=== PATIENT | female | born 1940 | race Caucasian/White ===

== ENCOUNTER → 2017-03-26 | Outpatient (CLI) | payer MEDICARE, OTHER ==
[~2017-03-26] MED LIST: ADVICOR; CALCIUM 6001 TAB PO; EPA FISH OIL1000 MG PO; FOSAMAX70 MG PO; LIPITOR 10MG10 MG PO; VITAMIN B150 MG PO; VITAMIN B610 MG PO; VITAMIN D 400400 IU PO
== END ==
LOC: MC.RAD 12:55
DX: Z12.31 Encounter for screening mammogram for malignant neoplasm of breast (principal)

== ENCOUNTER 2018-02-02 16:26 | Emergency (ER) | payer MEDICARE, OTHER ==
[~2018-02-02] VITALS: Ht 152.4 cm; Wt 60.5 kg
[2018-02-02 16:31] VITALS: TEMP 98.7
[2018-02-02 17:05] LABS: COLLECTION METHOD CLEAN CATCH
[2018-02-02 17:10] LABS: BASO # 0.1 (0.0-0.2); BASO % 0.6 % (0.0-2.0); EOS # 0.1 (0.0-0.7); EOS % 1.5 % (0-4.0); GRAN # 5.8 (1.4-6.5); GRAN % 67.1 % (42.2-75.2); HEMATOCRIT 44.1 % (37.0-47.0); HEMOGLOBIN 14.9 g/dl (12.5-16.0); LYMPH # 1.4 (1.2-3.4); LYMPH % 16.4 % (20.0-51.0); MEAN CELL VOLUME 91 fl (80.0-100.0); MEAN CORPUSCULAR HEMOGLOBIN 31 pg (27.0-31.0); MEAN CORPUSCULAR HGB CONC 34 g/dl (33.0-37.0); MEAN PLATELET VOLUME 10.1 fl (7.4-10.4); MONO # 1.2 (0.1-0.6); MONO % 13.8 % (1.7-9.3); PLATELET COUNT 251 K/mm3 (130-400); RED BLOOD COUNT 4.85 M/mm3 (4.10-5.30); REDCELL DISTRIBUTION WIDTH-CV 12.5 % (11.5-14.5)
[2018-02-02] MEDS ORDERED: GINKGO60 MG PO (17:11)
[2018-02-02 17:12] LABS: MUCOUS Present /lpf; PH 5 (5-8); URINE APPEARANCE Hazy; URINE BACTERIA Rare /hpf; URINE BILIRUBIN Negative (NEGATIVE); URINE BLOOD Negative (NEGATIVE); URINE COLOR Yellow; URINE GLUCOSE Negative (NEGATIVE); URINE KETONE Negative (NEGATIVE); URINE LEUKOCYTE ESTERASE 1+ (NEGATIVE); URINE NITRATE Negative (NEGATIVE); URINE PROTEIN(semi-quant) Negative (NEGATIVE); URINE RBC 0-2 /hpf; URINE UROBILINOGEN Negative (NEGATIVE)
[2018-02-02] MEDS ORDERED: THE MEDICINE S200 M2 PO (17:14)
[2018-02-02] MEDS ORDERED: B-121000 MCG PO (17:14)
[2018-02-02] MEDS ORDERED: ARICEPT10 MG PO (17:15)
[2018-02-02] MEDS ORDERED: BUSPAR10 MG PO (17:15)
[2018-02-02] MEDS ORDERED: XALATAN EYE DROPS OD (17:15)
[2018-02-02] MEDS ORDERED: LEADER GARLIC400 MG PO (17:16)
[2018-02-02 17:21] LABS: ALANINE AMINOTRANSFERASE 30 U/L (9-52); ALKALINE PHOSPHATASE 48 U/L (50-136); ANION GAP 13 mmol/L (7-16); AST,SGOT 19 U/L (15-37); BILIRUBIN,TOTAL 0.2 mg/dL (0.0-1.0); BLOOD UREA NITROGEN 14 mg/dL (7-17); CALCIUM 9.1 mg/dL (8.4-10.2); CARBON DIOXIDE 22 mmol/L (22-30); CHLORIDE 105 mmol/L (98-107); CREATININE, serum 0.82 mg/dL (0.52-1.25); GLUCOSE 108 mg/dL (74-106); SODIUM 139 mmol/L (137-145); TOTAL PROTEIN 6.7 gm/dL (6.4-8.2)
[2018-02-02] MEDS ORDERED: PROLIA60 MG/ML SQ (17:24)
[2018-02-02 17:35] LABS: TROPONIN-I < 0.012 ng/mL (0.000-0.034)
[2018-02-02] MEDS ORDERED: CEFTIN500 MG PO (17:55)
[2018-02-02 18:46] VITALS: BP 130/66; PULSE 64
== END 2018-02-02 18:49 | disposition home or self-care (01) ==
LOC: COL.ER 16:26
PROVIDERS: Emergency Medicine
DX: N39.0 Urinary tract infection, site not specified (principal); R42 Dizziness and giddiness; Z90.710 Acquired absence of both cervix and uterus; Z90.89 Acquired absence of other organs
CPT/HCPCS: J7030

== ENCOUNTER 2018-02-10 08:47 | Emergency (ER) | payer MEDICARE, OTHER ==
[~2018-02-10] VITALS: Ht 152.4 cm; Wt 72.7 kg
[~2018-02-10 08:47] MED LIST changes: +ARICEPT10 MG PO; +B-121000 MCG PO; +BUSPAR10 MG PO; +CEFTIN500 MG PO; +GINKGO60 MG PO; +LEADER GARLIC400 MG PO; +PROLIA60 MG/ML SQ; +THE MEDICINE S200 M2 PO; +XALATAN EYE DROPS OD
[2018-02-10 09:00] VITALS: TEMP 98
[2018-02-10] MEDS ORDERED: ANTIVERT 25MG25 MG PO (09:32)
[2018-02-10 09:36] LABS: BASO % 0.7 % (0.0-2.0); EOS # 0.2 (0.0-0.7); EOS % 2.9 % (0-4.0); GRAN # 3.4 (1.4-6.5); HEMATOCRIT 42.6 % (37.0-47.0); HEMOGLOBIN 14.2 g/dl (12.5-16.0); LYMPH # 1.2 (1.2-3.4); LYMPH % 20.7 % (20.0-51.0); MEAN CELL VOLUME 90 fl (80.0-100.0); MEAN CORPUSCULAR HEMOGLOBIN 30 pg (27.0-31.0); MEAN CORPUSCULAR HGB CONC 33 g/dl (33.0-37.0); MEAN PLATELET VOLUME 9.8 fl (7.4-10.4); MONO % 16.4 % (1.7-9.3); PLATELET COUNT 231 K/mm3 (130-400); RED BLOOD COUNT 4.71 M/mm3 (4.10-5.30); REDCELL DISTRIBUTION WIDTH-CV 12.8 % (11.5-14.5)
[2018-02-10 09:46] LABS: ALANINE AMINOTRANSFERASE 30 U/L (9-52); ALBUMIN 3.5 gm/dL (3.5-5.0); ALKALINE PHOSPHATASE 40 U/L (50-136); ANION GAP 8 mmol/L (7-16); AST,SGOT 18 U/L (15-37); BILIRUBIN,TOTAL 0.3 mg/dL (0.0-1.0); BLOOD UREA NITROGEN 16 mg/dL (7-17); CALCIUM 8.7 mg/dL (8.4-10.2); CARBON DIOXIDE 26 mmol/L (22-30); CHLORIDE 106 mmol/L (98-107); CREATININE, serum 0.75 mg/dL (0.52-1.25); GLUCOSE 98 mg/dL (74-106); MAGNESIUM 2.3 mg/dL (1.6-2.3); PHOSPHOROUS 2.4 mg/dL (2.5-4.5); POTASSIUM 4.3 mmol/L (3.4-5.0); SODIUM 140 mmol/L (137-145); TOTAL PROTEIN 6.1 gm/dL (6.4-8.2)
[2018-02-10 09:59] LABS: TROPONIN-I < 0.012 ng/mL (0.000-0.034)
[2018-02-10 10:29] LABS: COLLECTION METHOD CLEAN CATCH
[2018-02-10 10:34] LABS: PH 7 (5-8); SQUAMOUS EPITHELIAL 0-2 /hpf; URINE APPEARANCE Clear; URINE BACTERIA Rare /hpf; URINE BILIRUBIN Negative (NEGATIVE); URINE BLOOD Negative (NEGATIVE); URINE COLOR Straw; URINE GLUCOSE Negative (NEGATIVE); URINE KETONE Negative (NEGATIVE); URINE LEUKOCYTE ESTERASE Negative (NEGATIVE); URINE NITRATE Negative (NEGATIVE); URINE PROTEIN(semi-quant) Negative (NEGATIVE); URINE RBC 0-2 /hpf; URINE UROBILINOGEN Negative (NEGATIVE)
[2018-02-10 11:30] VITALS: BP 125/65; PULSE 72
== END 2018-02-10 11:30 | disposition home or self-care (01) ==
LOC: COL.ER 08:47
PROVIDERS: Emergency Medicine
DX: R42 Dizziness and giddiness (principal); F41.9 Anxiety disorder, unspecified

== ENCOUNTER → 2018-04-04 | Outpatient (CLI) | payer MEDICARE, OTHER ==
[~2018-04-04] MED LIST changes: +ANTIVERT 25MG25 MG PO
== END ==
LOC: MC.RAD 11:15
DX: Z12.31 Encounter for screening mammogram for malignant neoplasm of breast (principal); Z85.3 Personal history of malignant neoplasm of breast

== ENCOUNTER → 2019-04-09 | Outpatient (CLI) | payer MEDICARE, OTHER | LOC: MC.RAD 09:25 | DX: Z12.31 Encounter for screening mammogram for malignant neoplasm of breast (principal); Z98.890 Other specified postprocedural states; Z85.3 Personal history of malignant neoplasm of breast; Z98.82 Breast implant status ==

== ENCOUNTER → 2021-01-10 | Outpatient (CLI) | payer MEDICARE, OTHER ==
[~2021-01-10] MED LIST changes: +ASPIRIN E.C. 8181 MG PO; +CALCIUM 600 PLU1 TAB PO; +NAMENDA 10MG TA10 MG PO; +PREVAGEN PO; +ROXICODONE 55 MG/TAB PO; +VITAMIN C500 MG PO; +VITAMIN D31000 I1 PO; +ZOLOFT 100MG100 MG PO
== END ==
LOC: MC.RAD 14:00
DX: N63.31 Unspecified lump in axillary tail of the right breast (principal)

== ENCOUNTER → 2021-01-24 | Outpatient (CLI) | payer MEDICARE, OTHER | LOC: MC.RAD 10:00 | DX: N63.11 Unspecified lump in the right breast, upper outer quadrant (principal); N64.1 Fat necrosis of breast; Z98.890 Other specified postprocedural states ==

== ENCOUNTER 2021-03-27 14:02 | Outpatient (RCR) | payer MEDICARE, OTHER ==
[~2021-03-27 14:02] MED LIST changes: -ASPIRIN E.C. 8181 MG PO; -CALCIUM 600 PLU1 TAB PO; -NAMENDA 10MG TA10 MG PO; -PREVAGEN PO; -ROXICODONE 55 MG/TAB PO; -VITAMIN C500 MG PO; -VITAMIN D31000 I1 PO; -ZOLOFT 100MG100 MG PO
[2021-04-01] MEDS ORDERED: NAMENDA 10MG TA10 MG PO (22:42)
[2021-04-01] MEDS ORDERED: PREVAGEN PO (22:43)
[2021-04-01] MEDS ORDERED: VITAMIN D31000 I1 PO (23:57)
[2021-04-01] MEDS ORDERED: CALCIUM 600 PLU1 TAB PO (23:58)
[2021-04-02] MEDS ORDERED: ZOLOFT 100MG100 MG PO
[2021-04-04] MEDS ORDERED: ASPIRIN E.C. 8181 MG PO (08:00)
[2021-04-04] MEDS ORDERED: VITAMIN C500 MG PO (08:01)
[2021-04-04] MEDS ORDERED: ROXICODONE 55 MG/TAB PO (09:02)
== END 2021-06-09 | disposition home or self-care (01) ==
LOC: WSST
DX: G30.9 Alzheimer's disease, unspecified (principal); F02.80 Dementia in other diseases classified elsewhere, unspecified severity, without behavioral disturbance, psychotic disturbance, mood disturbance, and anxiety; F41.9 Anxiety disorder, unspecified

== ENCOUNTER 2021-04-01 21:25 | Inpatient (IN) | payer MEDICARE, OTHER ==
[~2021-04-01] VITALS: Ht 157.5 cm; Wt 60.4 kg
[2021-04-01 21:51] LABS: BASO # 0.1 K/mm3 (0.0-0.2); BASO % 0.8 % (0.0-2.0); EOS # 0.1 K/mm3 (0.0-0.7); EOS % 1.5 % (0-4.0); GRAN # 3.3 K/mm3 (1.4-6.5); GRAN % 50.9 % (42.2-75.2); HEMATOCRIT 40.3 % (37.0-47.0); LYMPH # 2.3 K/mm3 (1.2-3.4); LYMPH % 35.1 % (20.0-51.0); MEAN CELL VOLUME 88 fl (80.0-100.0); MEAN CORPUSCULAR HEMOGLOBIN 31 pg (27.0-31.0); MEAN CORPUSCULAR HGB CONC 35 g/dl (33.0-37.0); MEAN PLATELET VOLUME 11.1 fl (7.4-10.4); MONO # 0.7 K/mm3 (0.1-0.6); MONO % 11.1 % (1.7-9.3); PLATELET COUNT 244 K/mm3 (130-400); RED BLOOD COUNT 4.56 M/mm3 (4.10-5.30); REDCELL DISTRIBUTION WIDTH-CV 12.5 % (11.5-14.5)
[2021-04-01 21:54] LABS: PROTHROMBIN TIME 10.6 SECONDS (9.7-12.8)
[2021-04-01 22:02] LABS: CALCIUM 9.1 mg/dL (8.4-10.2); CREATININE, serum 0.75 mg/dL (0.57-1.11); POTASSIUM 3.7 mmol/L (3.5-4.5)
[2021-04-01] MEDS ORDERED: NAMENDA 10MG TA10 MG PO (22:42)
[2021-04-01] MEDS ORDERED: PREVAGEN PO (22:43)
[2021-04-01] MEDS ORDERED: VITAMIN D31000 I1 PO (23:57)
[2021-04-01] MEDS ORDERED: CALCIUM 600 PLU1 TAB PO (23:58)
[2021-04-02] VITALS (12 sets, daily range): BP systolic 92–139; BP diastolic 36–90; PULSE 68–97; TEMP 97.6–98.1
[2021-04-02] MEDS ORDERED: ZOLOFT 100MG100 MG PO
--- NOTE | 2021-04-02 01:02 | NUR ---
PT ADMITTED FROM E.D. WITH LT HIP Fx. PT HAVING DIFFICULT TIME ANSWERING QUESTIONS AFTER PAIN MEDS RECEIVED IN E.D. TEDs AND SCDs ON RLE. AMOR INITIATED.
[2021-04-02 05:23] LABS: COLLECTION METHOD CLEAN CATCH
[2021-04-02 05:29] LABS: PH 8 (5-8); SQUAMOUS EPITHELIAL None Seen /hpf; URINE APPEARANCE Clear; URINE BACTERIA None Seen /hpf; URINE BILIRUBIN Negative (NEGATIVE); URINE BLOOD Negative (NEGATIVE); URINE COLOR Straw; URINE GLUCOSE Negative (NEGATIVE); URINE KETONE Negative (NEGATIVE); URINE LEUKOCYTE ESTERASE Negative (NEGATIVE); URINE NITRATE Negative (NEGATIVE); URINE PROTEIN(semi-quant) Negative (NEGATIVE); URINE RBC 0-2 /hpf; URINE UROBILINOGEN Negative (NEGATIVE)
--- NOTE | 2021-04-02 11:01 | NUR ---
PT RESTING IN BED. LEFT HIP INTERNALLY ROTATED. SISTER AT BEDSIDE. XRAY COMPLETE PT HAS BEEN CLEARED FOR SURGERY LATER TODAY.
--- NOTE | 2021-04-02 13:34 | NUR ---
general foundry worker met with patient to discuss discharge plan. Patient states that she lives at home in [place] by herself. Reports that before this she has been fully independent and utilizes no DME within the home or to assist with mobility. Patient is currently on 2L of oxygen in the room, however reports that she does not utilize o2 at home. Patient reports that she does not have a DPOA-HC established and does not wish to at this moment. Patient is not and has no children. NOK is her sister Roma ([phone]) Educated the patient that Roma would legally be her agent and she verbalized her understanding of this. Educated the patient for the need of post acute rehab. [facility] vs SNF discussed. Patient would like to try [facility] first, and is open to sending referrals to [facility]. Referrals faxed to these facilities. Discharge plan: [facility] vs [facility] SNF
--- NOTE | 2021-04-02 15:58 | NUR ---
PT TO PACU SURGERY PREP @1230.
--- NOTE | 2021-04-02 20:33 | NUR ---
PT BACK FROM O.R./PACU. VERY DROWSY/SEDATED. FAMILY IN ROOM. DRESSING CD&I TO LT HIP. FAMILY INFORMED THEY CAN'T SPEND THE NIGHT.
[2021-04-03 03:17] VITALS: BP 128/57; PULSE 75; TEMP 98.5
--- NOTE | 2021-04-03 05:15 | NUR ---
RESTING QUIETLY/SLEEPING. PT DENIES PAIN AT REST. PT REFUSED ICE BAG. PT SOMEWHAT DISORIENTED AFTER SURGERY BUT ABLE TO ANSWER BASIC QUESTIONS R/T PAIN,THIRST ETC.
[2021-04-03 07:11] VITALS: BP 130/63; PULSE 73; TEMP 98
[2021-04-03 07:50] LABS: BASO % 0.1 % (0.0-2.0); CALCIUM 8.8 mg/dL (8.4-10.2); CREATININE, serum 0.7 mg/dL (0.57-1.11); GRAN # 7.6 K/mm3 (1.4-6.5); GRAN % 83.3 % (42.2-75.2); HEMATOCRIT 36.5 % (37.0-47.0); HEMOGLOBIN 12.5 g/dl (12.5-16.0); LYMPH # 0.5 K/mm3 (1.2-3.4); LYMPH % 5.3 % (20.0-51.0); MEAN CELL VOLUME 90 fl (80.0-100.0); MEAN CORPUSCULAR HEMOGLOBIN 31 pg (27.0-31.0); MEAN CORPUSCULAR HGB CONC 34 g/dl (33.0-37.0); MEAN PLATELET VOLUME 11.2 fl (7.4-10.4); MONO % 10.7 % (1.7-9.3); PLATELET COUNT 167 K/mm3 (130-400); POTASSIUM 4.3 mmol/L (3.5-4.5); RED BLOOD COUNT 4.06 M/mm3 (4.10-5.30); REDCELL DISTRIBUTION WIDTH-CV 12.7 % (11.5-14.5)
[2021-04-03 11:48] VITALS: BP 117/52; PULSE 85; TEMP 98.2
--- NOTE | 2021-04-03 12:46 | NUR ---
Андрей with [facility] accepts patient for SNF once ready for dc.
--- NOTE | 2021-04-03 13:06 | NUR ---
Initial visit; Patient thanked Compounding Technician for looking in on her and offering God's blessings and to continue to Follow up. Patient seemed somewhat confused.
[2021-04-03 15:17] VITALS: BP 109/53; PULSE 103; TEMP 97.7
[2021-04-03 19:50] VITALS: BP 117/42; PULSE 106; TEMP 98.2
--- NOTE | 2021-04-03 22:54 | NUR ---
Patient alert and oriented to self only. Patient resting in bed and appears comfortable. Patient denies pain or discomfort. Left hip incision site dressing C/D/I. Whittington catherter patent and draining dark tea colored urine. All scheduled meds given per AUG. Call light in reach. Will continue to monitor.
[2021-04-03 23:32] VITALS: BP 131/55; PULSE 80; TEMP 97.6
[2021-04-04 03:49] VITALS: BP 108/39; PULSE 74; TEMP 97.7
--- NOTE | 2021-04-04 06:12 | NUR ---
Patient ambulated to the bathroom with x1 assist to have BM x1 this morning. Whittington catheter removed around 05:30 am this morning. Encouraged patient to use call light to call nurse if she needs to urinate. Patient verbalized understading. Call light in reach. Will give report to day shift nurse.
[2021-04-04 06:52] LABS: BASO % 0.3 % (0.0-2.0); EOS # 0.1 K/mm3 (0.0-0.7); EOS % 0.4 % (0-4.0); GRAN # 9.4 K/mm3 (1.4-6.5); GRAN % 81.2 % (42.2-75.2); HEMOGLOBIN 11.3 g/dl (12.5-16.0); LYMPH # 0.8 K/mm3 (1.2-3.4); LYMPH % 6.7 % (20.0-51.0); MEAN CELL VOLUME 90 fl (80.0-100.0); MEAN CORPUSCULAR HEMOGLOBIN 30 pg (27.0-31.0); MEAN CORPUSCULAR HGB CONC 34 g/dl (33.0-37.0); MEAN PLATELET VOLUME 11.7 fl (7.4-10.4); MONO # 1.3 K/mm3 (0.1-0.6); MONO % 10.8 % (1.7-9.3); PLATELET COUNT 145 K/mm3 (130-400); RED BLOOD COUNT 3.72 M/mm3 (4.10-5.30)
[2021-04-04 06:58] LABS: HEMATOCRIT 33.5 % (37.0-47.0)
[2021-04-04 07:11] LABS: CALCIUM 8.6 mg/dL (8.4-10.2); CREATININE, serum 0.68 mg/dL (0.57-1.11); POTASSIUM 3.8 mmol/L (3.5-4.5)
[2021-04-04 07:30] VITALS: BP 113/36; PULSE 89; TEMP 98.8
[2021-04-04] MEDS ORDERED: ASPIRIN E.C. 8181 MG PO (08:00)
[2021-04-04] MEDS ORDERED: VITAMIN C500 MG PO (08:01)
[2021-04-04] MEDS ORDERED: ROXICODONE 55 MG/TAB PO (09:02)
--- NOTE | 2021-04-04 09:39 | NUR ---
clam bed worker met with patient to discuss the need to a SNF placement. Patient is in agreement to this plan and "thinks" she has gone to [facility] in the past. Educated the patient that we can send referrals to the facilities in [facility] and that i will double check with Susanna at [facility] to see if the patient has been there in the past. Patient is in agreement with this plan. Referral faxed to [facility] and [facility]. Phone calls placed and left messages with both Susanna and Андрей. Once i hear back for the facilities, i will collaborate with the patient to discuss which facility she would like to go to. Discharge plan: SNF- Referrals have been faxed to [facility] and [facility]- Pending acceptance
--- NOTE | 2021-04-04 09:46 | NUR ---
Clinical updates faxed to [place] at [facility]. Patient notified. Patient's sister Thelma at bedside. Both are in agreement with dc plan to [facility] SNF. Awaiting to hear back on a transfer time from [place] at [facility]. Covid swab requested.
--- NOTE | 2021-04-04 10:14 | NUR ---
Follow-up visit; Patient thanked for stopping and wishing her a good morning.
--- NOTE | 2021-04-04 11:02 | NUR ---
Contacted Андрей at [facility]. Patient is only on her 2 midnight as an inpatient and collaboration is being worked through to see if [facility] can accept the patient by utilizing the Covid waiver, due to hospital bed shortages. Notification made to physician staff.
--- NOTE | 2021-04-04 11:25 | NUR ---
NOTIFIED ORTHO OF US RESULTS.
[2021-04-04 11:42] VITALS: BP 93/38; PULSE 85; TEMP 98.1
--- NOTE | 2021-04-04 13:21 | NUR ---
Андрей with [facility] advises that they can accept the patient today. DC orders and updated Covid swab faxed to him. Transportation time arranged for 1400. KALE Norton, nursing, and patient notified. Patient's sister Thelma ([phone]) contacted. All are in agreement with the patient going to [facility] at 1400. Discharge plan:[facility] SNF
--- NOTE | 2021-04-04 14:15 | NUR ---
PATIENT DISCHARGING VIA WC TO [facility]. DC'D LEFT HAND IV, COVERED SITE WITH [employer]. PATIENT IS DRESSED, PACKED AND DISCHARGED. CALL REPORTS TO [facility] NURSE.
== END 2021-04-04 14:15 | DRG 522 ==
LOC: COL.ER 21:25 → SURG 23:45
PROVIDERS: Emergency Medicine; Family Medicine; Nurse Practitioner Family; Orthopaedic Surgery; Physician Assistant
PROC: 0SRS0J9 Replacement of Left Hip Joint, Femoral Surface with Synthetic Substitute, Cemented, Open Approach (ICD-10-PCS; principal; 2021-04-02 11:30)
DX: S72.002A Fracture of unspecified part of neck of left femur, initial encounter for closed fracture (principal); F03.90 Unspecified dementia, unspecified severity, without behavioral disturbance, psychotic disturbance, mood disturbance, and anxiety; E78.5 Hyperlipidemia, unspecified; F32.A Depression, unspecified; D64.9 Anemia, unspecified; W01.0XXA Fall on same level from slipping, tripping and stumbling without subsequent striking against object, initial encounter; Y93.89 Activity, other specified; Y92.009 Unspecified place in unspecified non-institutional (private) residence as the place of occurrence of the external cause; Z85.3 Personal history of malignant neoplasm of breast; Z23 Encounter for immunization; Z20.822 Contact with and (suspected) exposure to COVID-19
CPT/HCPCS: 99223-AI; 99232-AI; 99239; A9284; C1713; C1776; J0690; J1170; J2270; J2405; J3370